=== PATIENT | female | born 1995 | race Caucasian/White ===

== ENCOUNTER 2020-03-13 11:13 | Emergency (ER) | payer OTHER ==
[~2020-03-13] VITALS: Ht 152.4 cm; Wt 56.7 kg
[2020-03-13 11:57] VITALS: Ht 152.4 cm; Wt 56.7 kg
[2020-03-13 14:18] VITALS: BP 102/79
== END 2020-03-13 14:18 | disposition home or self-care (01) ==
LOC: ED 11:13
DX: J06.9 Acute upper respiratory infection, unspecified (principal); Z20.828 Contact with and (suspected) exposure to other viral communicable diseases
CPT/HCPCS: 87804; J3411; J3490; J7030; Q0092; U0003-CS

== ENCOUNTER 2020-04-16 09:24 | Emergency (ER) | payer OTHER ==
[~2020-04-16] VITALS: Ht 152.4 cm; Wt 56.7 kg
[2020-04-16 09:37] VITALS: Ht 152.4 cm; Wt 56.7 kg
[2020-04-16 13:14] VITALS: BP 117/83
== END 2020-04-16 13:14 | disposition home or self-care (01) ==
LOC: ED 09:24
DX: U07.1 COVID-19 (principal)
CPT/HCPCS: Q0092; U0003-CS